=== PATIENT | female | born 1960 | race Caucasian/White ===

== ENCOUNTER 2025-07-13 12:53 | Outpatient (CLI) | payer MEDICARE | END 2025-07-13 12:54 | disposition home or self-care (01) | LOC: SCSBT 12:53 | PROVIDERS: ATTEND Student in an Organized Health Care Education/Training Program | DX: Z78.0 Asymptomatic menopausal state (principal); M81.0 Age-related osteoporosis without current pathological fracture; M85.88 Other specified disorders of bone density and structure, other site | CPT/HCPCS: 77080 ==